=== PATIENT | male | born 1950 | race Two or more races ===

== ENCOUNTER 2021-11-24 17:39 | Inpatient (IN) | payer MEDICARE, OTHER ==
[~2021-11-24] VITALS: Ht 180.3 cm; Wt 67.7 kg
[~2021-11-24 17:39] MED LIST: ASPI-1169 PO; ATOR10TA GT; CLOP75TA15 PO; HYDR-4384 PO; INSU100I30 SQ; LINA5TAB PO; LISI2.5T2 PO; OMEP40CA21 PO
[2021-11-24] MEDS ORDERED: HYDROCODONE/APAP 5/325MG TABLET ONE (18:29)
[2021-11-24] MEDS ORDERED: HYDROCODONE/APAP 5/325MG TABLET PO ONE (18:30)
[2021-11-24 20:15] LABS: BASOPHILS % (AUTO) 0.4 % (0.0-2.0); EOSINOPHILS % (AUTO) 0.9 % (0.0-6.0); HEMATOCRIT 41 % (39-51); LYMPHOCYTES # (AUTO) 1.6 K/uL (0.8-4.8); MEAN CORPUSCULAR HGB CONC 34 g/dl (31.0-36.0); MEAN CORPUSCULAR VOLUME 86 fL (80-96); MONOCYTES # (AUTO) 0.8 K/uL (0.1-1.30); MONOCYTES % (AUTO) 7.5 % (2.0-12.0); NEUTROPHILS % (AUTO) 76.2 % (43.0-81.0); PLATELET COUNT (AUTO) 197 K/uL (150-450); RED BLOOD CELL COUNT(AUTO) 4.74 MIL/uL (4.5-6.0); WHITE BLOOD COUNT (AUTO) 10.5 K/uL (4.3-11.0)
[2021-11-24 20:17] LABS: CARBON DIOXIDE 24 mmol/L (21-32); CHLORIDE 103 mmol/L (98-107); CREATININE 0.8 mg/dL (0.6-1.3); GLUCOSE 125 mg/dL (74-106); POTASSIUM 4.2 mmol/L (3.5-5.1); SODIUM SERUM 136 mmol/L (136-145); UREA NITROGEN, BLOOD 11 mg/dL (7-18)
[2021-11-24] MEDS ORDERED: ENOXAPARIN SODIUM 40 MG/0.4 ML DISP.SYRIN SQ SCH (21:00)
[2021-11-24] MEDS ORDERED: ACETAMINOPHEN 325 MG TABLET PO PRN (21:00)
[2021-11-24] MEDS ORDERED: ONDANSETRON HCL/PF 4 MG/2 ML VIAL IVP PRN (21:00)
[2021-11-24] MEDS ORDERED: DEXTROSE 50%-WATER 50 ML DISP.SYRIN IV PRN (21:30)
[2021-11-24 21:40] VITALS: BP 122/71
[2021-11-24] MEDS: BLOOD SUGAR DIAGNOSTIC 1 EACH STRIP IN SCH (22:15)
[2021-11-24] MEDS: HYDROCODONE/APAP 5/325MG TABLET PO PRN (22:36)
[2021-11-24] MEDS: INSULIN REGULAR, HUMAN 100 UNIT/ML 3 ML VIAL SQ PRN (22:40)
[2021-11-25] MEDS: MORPHINE SULFATE INJ 2 MG/ML DISP.SYRIN IV PRN (04:52)
[2021-11-25 06:17] LABS: BASOPHILS # (AUTO) 0.1 K/uL (0.0-0.2); BASOPHILS % (AUTO) 0.7 % (0.0-2.0); EOSINOPHILS % (AUTO) 2.4 % (0.0-6.0); HEMATOCRIT 41 % (39-51); HEMOGLOBIN 13.7 g/dL (13.5-17.5); LYMPHOCYTES # (AUTO) 1.5 K/uL (0.8-4.8); LYMPHOCYTES % (AUTO) 18.9 % (20.0-44.0); MEAN CORPUSCULAR HGB CONC 34 g/dl (31.0-36.0); MEAN CORPUSCULAR VOLUME 88 fL (80-96); MONOCYTES # (AUTO) 0.7 K/uL (0.1-1.30); MONOCYTES % (AUTO) 8.5 % (2.0-12.0); NEUTROPHILS # (AUTO) 5.4 K/uL (1.8-8.9); NEUTROPHILS % (AUTO) 69.5 % (43.0-81.0); PLATELET COUNT (AUTO) 196 K/uL (150-450); RED BLOOD CELL COUNT(AUTO) 4.69 MIL/uL (4.5-6.0); WHITE BLOOD COUNT (AUTO) 7.8 K/uL (4.3-11.0)
[2021-11-25] MEDS: BLOOD SUGAR DIAGNOSTIC 1 EACH STRIP IN SCH ×4 (06:52→21:16)
[2021-11-25] MEDS: INSULIN REGULAR, HUMAN 100 UNIT/ML 3 ML VIAL SQ PRN ×2 (07:01→21:18)
[2021-11-25 07:08] LABS: CARBON DIOXIDE 23 mmol/L (21-32); CHLORIDE 104 mmol/L (98-107); CREATININE 0.8 mg/dL (0.6-1.3); GLUCOSE 267 mg/dL (74-106); MAGNESIUM 1.5 mg/dL (1.8-2.4); PHOSPHORUS 3.7 mg/dL (2.5-4.9); POTASSIUM 4.4 mmol/L (3.5-5.1); SODIUM SERUM 135 mmol/L (136-145); UREA NITROGEN, BLOOD 12 mg/dL (7-18)
[2021-11-25 07:24] LABS: CHOLESTEROL 222 mg/dL (<200); HDL CHOLESTEROL 45 mg/dL (40-60); LDL 142 mg/dL (0-99); TRIGLYCERIDES 251 mg/dL (30-150)
[2021-11-25 08:00] VITALS: BP 126/65
[2021-11-25] MEDS ORDERED: BENZ-38 PO (08:30)
[2021-11-25] MEDS ORDERED: GLIM4TAB37 PO (08:30)
[2021-11-25] MEDS ORDERED: TAMS-12 PO (08:30)
[2021-11-25] MEDS ORDERED: GABA-532 PO (08:30)
[2021-11-25] MEDS ORDERED: RIVA10TA PO (08:30)
[2021-11-25] MEDS ORDERED: METF-440 PO (08:30)
[2021-11-25] MEDS ORDERED: ROSU40TA23 PO (08:30)
[2021-11-25] MEDS ORDERED: PIOG45TA5 PO (08:30)
[2021-11-25] MEDS ORDERED: BUSP7.5T7 PO (08:30)
[2021-11-25] MEDS ORDERED: INSU100I26 SQ (08:30)
[2021-11-25] MEDS ORDERED: Medication Not On Formulary EA (Rosuvastatin Calcium 40 MG) PO SCH (09:00)
[2021-11-25] MEDS ORDERED: Medication Not On Formulary EA (Pioglitazone Hcl (Actos) 45 MG) PO SCH (09:00)
[2021-11-25] MEDS ORDERED: busPIRone 5 MG TABLET PO PRN (09:00)
[2021-11-25] MEDS ORDERED: BENZONATATE 100 MG CAPSULE PO PRN (09:00)
[2021-11-25] MEDS ORDERED: RIVAROXABAN 10 MG TABLET PO SCH (09:00)
[2021-11-25] MEDS: PIOGLITAZONE HCL 15 MG TABLET PO SCH (09:17)
[2021-11-25] MEDS: ATORVASTATIN 40 MG TABLET PO SCH (09:17)
[2021-11-25] MEDS: LISINOPRIL (5MG) 5 MG TABLET PO SCH (09:17)
[2021-11-25] MEDS: CLOPIDOGREL BISULFATE 75 MG TABLET PO SCH (09:17)
[2021-11-25] MEDS: METFORMIN 500 MG TABLET PO SCH ×2 (09:17→17:54)
[2021-11-25] MEDS: LINAGLIPTIN 5 MG TABLET PO SCH (09:17)
[2021-11-25] MEDS: INSULIN GLARGINE, 100 UNIT/ML CARTRIDGE SQ SCH ×2 (09:25→17:57)
[2021-11-25] MEDS: HYDROCODONE/APAP 5/325MG TABLET PO PRN ×3 (09:33→23:29)
[2021-11-25] MEDS ORDERED: MAGNESIUM OXIDE 400 MG TABLET PO ONE (12:30)
[2021-11-25 16:00] VITALS: BP 142/62
[2021-11-25] MEDS: GABAPENTIN 100 MG CAPSULE PO SCH (17:54)
[2021-11-25] MEDS: RIVAROXABAN 10 MG TABLET PO SCH (17:58)
[2021-11-25] MEDS: NICOTINE PATCH (21MG) 21 MG PATCH.TD24 TD SCH (18:09)
[2021-11-25 20:00] VITALS: BP 123/64
[2021-11-25] MEDS: TAMSULOSIN 0.4 MG CAP.SR.24H PO SCH (22:00)
[2021-11-26] MEDS: MORPHINE SULFATE INJ 2 MG/ML DISP.SYRIN IV PRN (04:01)
[2021-11-26] MEDS: BLOOD SUGAR DIAGNOSTIC 1 EACH STRIP IN SCH ×4 (06:34→22:36)
[2021-11-26] MEDS: INSULIN REGULAR, HUMAN 100 UNIT/ML 3 ML VIAL SQ PRN ×3 (06:34→17:21)
[2021-11-26] MEDS ORDERED: Medication Not On Formulary EA (Omeprazole 40 MG) PO SCH (07:30)
[2021-11-26 08:00] VITALS: BP 133/71
[2021-11-26] MEDS: PANTOPRAZOLE 40 MG TABLET.DR PO SCH (08:19)
[2021-11-26] MEDS: METFORMIN 500 MG TABLET PO SCH ×2 (08:19→17:27)
[2021-11-26] MEDS: INSULIN GLARGINE, 100 UNIT/ML CARTRIDGE SQ SCH ×2 (08:52→17:22)
[2021-11-26] MEDS: NICOTINE PATCH (21MG) 21 MG PATCH.TD24 TD SCH (08:56)
[2021-11-26] MEDS: LINAGLIPTIN 5 MG TABLET PO SCH (08:56)
[2021-11-26] MEDS: ATORVASTATIN 40 MG TABLET PO SCH (08:56)
[2021-11-26] MEDS: LISINOPRIL (5MG) 5 MG TABLET PO SCH (08:57)
[2021-11-26] MEDS: CLOPIDOGREL BISULFATE 75 MG TABLET PO SCH (08:57)
[2021-11-26] MEDS: PIOGLITAZONE HCL 15 MG TABLET PO SCH (08:57)
[2021-11-26] MEDS: HYDROCODONE/APAP 5/325MG TABLET PO PRN ×3 (09:25→19:52)
[2021-11-26] MEDS ORDERED: MAGNESIUM OXIDE 400 MG TABLET PO ONE (10:00)
[2021-11-26 16:00] VITALS: BP 118/66
[2021-11-26] MEDS: GABAPENTIN 100 MG CAPSULE PO SCH (17:27)
[2021-11-26] MEDS: RIVAROXABAN 10 MG TABLET PO SCH (17:30)
[2021-11-26 20:00] VITALS: BP 117/62
[2021-11-26] MEDS: TAMSULOSIN 0.4 MG CAP.SR.24H PO SCH (22:37)
[2021-11-27] MEDS: HYDROCODONE/APAP 5/325MG TABLET PO PRN ×3 (03:02→18:05)
[2021-11-27] MEDS: BLOOD SUGAR DIAGNOSTIC 1 EACH STRIP IN SCH ×3 (06:14→18:05)
[2021-11-27] MEDS: PANTOPRAZOLE 40 MG TABLET.DR PO SCH (07:10)
[2021-11-27] MEDS: PIOGLITAZONE HCL 15 MG TABLET PO SCH (08:41)
[2021-11-27] MEDS: CLOPIDOGREL BISULFATE 75 MG TABLET PO SCH (08:41)
[2021-11-27] MEDS: ATORVASTATIN 40 MG TABLET PO SCH (08:41)
[2021-11-27] MEDS: LINAGLIPTIN 5 MG TABLET PO SCH (08:42)
[2021-11-27] MEDS: LISINOPRIL (5MG) 5 MG TABLET PO SCH (08:42)
[2021-11-27] MEDS: METFORMIN 500 MG TABLET PO SCH ×2 (08:42→18:05)
[2021-11-27] MEDS: NICOTINE PATCH (21MG) 21 MG PATCH.TD24 TD SCH (08:42)
[2021-11-27] MEDS: INSULIN GLARGINE, 100 UNIT/ML CARTRIDGE SQ SCH ×2 (09:19→17:00)
[2021-11-27] MEDS ORDERED: MAGNESIUM OXIDE 400 MG TABLET PO ONE (10:00)
[2021-11-27] MEDS ORDERED: OXYC-128 PO (10:25)
[2021-11-27] MEDS: INSULIN REGULAR, HUMAN 100 UNIT/ML 3 ML VIAL SQ PRN (11:55)
[2021-11-27] MEDS: GABAPENTIN 100 MG CAPSULE PO SCH (18:05)
[2021-11-27] MEDS: RIVAROXABAN 10 MG TABLET PO SCH (18:07)
[2021-11-27 20:00] VITALS: BP 115/37
[2021-11-27 20:37] VITALS: BP 129/70
[2021-11-27] MEDS ORDERED: HYDROCODONE/APAP 5/325MG TABLET PO ONE (20:45)
[2021-11-27 21:30] VITALS: BP 128/65
== END 2021-11-27 21:30 | disposition home health service (06) | DRG 543 ==
LOC: ER 17:41 → MED 20:48
PROVIDERS: ADMIT Nurse Practitioner Acute Care; ATTEND Internal Medicine
DX: M48.56XA Collapsed vertebra, not elsewhere classified, lumbar region, initial encounter for fracture (principal); D68.69 Other thrombophilia; W19.XXXA Unspecified fall, initial encounter; Y92.89 Other specified places as the place of occurrence of the external cause; I10 Essential (primary) hypertension; Z20.822 Contact with and (suspected) exposure to COVID-19; K21.9 Gastro-esophageal reflux disease without esophagitis; E78.00 Pure hypercholesterolemia, unspecified; E11.9 Type 2 diabetes mellitus without complications; E78.5 Hyperlipidemia, unspecified; G89.29 Other chronic pain; Z74.09 Other reduced mobility; Z86.718 Personal history of other venous thrombosis and embolism; Z96.642 Presence of left artificial hip joint; Z79.82 Long term (current) use of aspirin; Z79.4 Long term (current) use of insulin; Z79.02 Long term (current) use of antithrombotics/antiplatelets; Z79.899 Other long term (current) drug therapy; Z72.0 Tobacco use; E27.9 Disorder of adrenal gland, unspecified; M51.37 Other intervertebral disc degeneration, lumbosacral region; I77.811 Abdominal aortic ectasia; I72.3 Aneurysm of iliac artery
CPT/HCPCS: 36415; 71045-TC; 72110-TC; 72148-TC; 73020; 73501; 73721-TC; 80048-TC; 80061-TC; 82962-TC; 83735-TC; 84100-TC; 85025-TC; 85730-TC; 87081-TC; 97112-TC; 97116-TC; 97530-TC; C9803; G0378; J1650; J1815; J2270